=== PATIENT | male | born 1970 | race Two or more races ===

== ENCOUNTER 2017-02-25 12:27 | Emergency (ER) | payer OTHER ==
[2017-02-25 12:39] VITALS: BMI 28.8
--- NOTE | 2017-02-25 13:12 | C.PDOC ---
History Of Present Illness 47 year old male presents to the ED with complaints of worsening left knee pain with new onset of swelling for 1 week exacerbated by weight bearing. Patient states he may have "prior athletic injuries" and does a lot of climbing and walking for work. He denies history chronic knee pain, trauma, or instability. Patient also complaints of right foot pain because he is "not using left leg as much." He has been non-compliant with medications for two years and denies chest pain, headache, weakness, or numbness. Time Seen by Provider: 02/25/17 12:57 Chief Complaint (Nursing): Lower Extremity Problem/Injury History Per: Patient History/Exam Limitations: no limitations Onset/Duration Of Symptoms: Days (1 week ), Sudden Onset (of swelling to left knee and right food pain ) Current Symptoms Are (Timing): Still Present Recent travel outside of the [place]: No Past Medical History Reviewed: Historical Data, Nursing Documentation, Vital Signs Vital Signs: Last Vital Signs Temp 99.1 F 02/25/17 12:39 Pulse 114 H 02/25/17 12:39 Resp 88 H 02/25/17 13:50 BP 101/50 L 02/25/17 15:45 Pulse Ox 100 02/25/17 15:28 - Medical History PMH: HTN - [facility] Procedures CLOSURE SKIN & SUBCUTANEOUS NEC (02/15/13) DIPHTHERIA TOXOID ADMIN (02/15/13) TETANUS TOXOID ADMINIST (02/15/13) Family History: States: Unknown Family Hx - Social History Hx Alcohol Use: Yes Hx Substance Use: No - Immunization History Hx Tetanus Toxoid Vaccination: No Hx Influenza Vaccination: No Hx Pneumococcal Vaccination: No Review Of Systems Constitutional: Negative for: Fever, Chills Cardiovascular: Negative for: Chest Pain, Palpitations Respiratory: Negative for: Shortness of Breath Musculoskeletal: Positive for: Foot Pain (right foot pain ), Other (left knee pain and swelling.) Neurological: Negative for: Weakness, Numbness, Headache Physical Exam - Physical Exam Appears: Non-toxic, No Acute Distress Skin: Warm, Dry, Other (no erythema) Head: Atraumatic Eye(s): bilateral: Normal Inspection, PERRL, EOMI Oral Mucosa: Moist Neck: Supple Chest: Symmetrical, No Deformity Cardiovascular: Rhythm Regular Respiratory: Normal Breath Sounds, No Rhonchi, No Wheezing Extremity: No Normal ROM (limited full flexion due to pain and swelling in the left knee ), No Tenderness, No Calf Tenderness, Capillary Refill (good capillary refill, less than two seconds ), Swelling (moderate to severe swelling of the left knee) Neurological/Psych: Oriented x3, Normal Speech, Normal Cognition, Normal Cranial Nerves, Normal Motor, Normal Sensation Gait: Steady ED Course And Treatment O2 Sat by Pulse Oximetry: 100 (room air ) Progress - Re-Evaluation Re-evaluation Note: 02/25/17 14:43 SBP 88. CO NAUSEA, LIGHTHEADEDNESS. NO CP, BAIN. LAST MEAL YESTERDAY. WILL IVF, REASSESS 02/25/17 15:28 SBP 105. FEELS BETTER 02/25/17 16:57 BP STABILIZED. S/P PT CRUTCH TRAINING. PT AGREES W DC, REFERRAL CLINIC GIVEN. ADVISED TO TAKE ENALAPRIL ONLY FOR NOW, FU PMD FOR FURTHER HTN MGMT. - Data Reviewed Data Reviewed: Lab, Diagnostic imaging, Old records - Critical Care Citical Care: Excluding Proc Time Critical Care Time: 90 minutes - Continuity of Care Discussed patient case with:: Patient Medical Decision Making Medical Decision Making: Patient advised of the need to see orthopedist for possible MRI for evaluation. Patient also advised of the risk of stroke, heart attack, and kidney failure due to uncontrolled hypertension and patient understands. Disposition Counseled Patient/Family Regarding: Studies Performed, Diagnosis, Need For Followup, Rx Given - Disposition Referrals: [facility] [Outside] [facility] [Outside] Disposition: HOME/ ROUTINE Disposition Time: 17:00 Condition: IMPROVED Prescriptions: Acetaminophen/Codeine [Tylenol/Codeine 300 MG/30 MG] 2 tab PO Q6H #20 tab Clopidogrel [Plavix] 75 mg PO DAILY #30 tab Enalapril Maleate [Vasotec] 10 mg PO BID #60 tab Furosemide [Lasix] 40 mg PO DAILY #30 tab hydrALAZINE [Apresoline] 50 mg PO TID #90 tab Indomethacin [Indocin] 25 mg PO BID PRN #14 cap PRN Reason: Pain, Moderate (4-7) Isosorbide Mononitrate [Isosorbide Mononitrate ER] 30 mg PO DAILY #30 tab.er.24h Labetalol [Trandate] 200 mg PO BID #60 tab Instructions: Swollen Knee Joint (ED), Hypertension (ED) Forms: Work Excuse - Clinical Impression Clinical Impression: Knee pain, Joint swelling, Hypertension, uncontrolled - Scribe Statement The provider has reviewed the documentation as recorded by the Scribvero Chappell All medical record entries made by the Miladisibe were at my direction and personally dictated by me. I have reviewed the chart and agree that the record accurately reflects my personal performance of the history, physical exam, medical decision making, and the department course for this patient. I have also personally directed, reviewed, and agree with the discharge instructions and disposition.
[2017-02-25] MEDS ORDERED: Oxycodone/Acetaminophen 5/325 mg Tab PO STA (13:20)
[2017-02-25] MEDS ORDERED: Oxycodone/Acetaminophen 5/325 mg Tab ONE (13:36)
[2017-02-25 14:29] VITALS: RESP 88
[2017-02-25] MEDS ORDERED: Sodium Chloride 0.9% 1,000 ML IV ONE (14:44)
[2017-02-25 17:07] VITALS: BP 143/71; PULSE 89; TEMP 97.3; O2SAT 99
== END 2017-02-25 17:15 | disposition home or self-care (01) ==
LOC: C.ER 12:27
DX: M25.562 Pain in left knee (principal); M25.462 Effusion, left knee; I10 Essential (primary) hypertension
CPT/HCPCS: 96360; 96372; 97116; 97161; 99285; G8978; G8979; G8980; J1885; J7040

== ENCOUNTER 2017-02-27 09:04 | Observation (INO) | payer OTHER ==
[2017-02-27 09:04] VITALS: BMI 28.8
--- NOTE | 2017-02-27 09:39 | C.PDOC ---
History Of Present Illness Patient is a 47 y/o male presents to the ED for evaluation of new onset of lip swelling since last night. Patient states swelling is worse this morning. Patient was seen here on 02/25 for uncontrolled hypertension and knee pain and swelling. Patient states that he has not taken his blood pressure medication since the dose given here on 02/25. Pt was previously prescribed Vasotec. Otherwise, denies any shortness of breath, wheezing, nausea, vomiting, or dizziness. NEW ONSET LIP SWELLING SINCE LAST NIGHT NOW WORSE THIS MORNING. DENIES SOB, WHEEZE, NV, DIZZY. SEEN 02/25 FOR UNCONTROLL HTN AND KNEE PAIN/SWELLING. PS HAS NOT TAKING BP MEDS SINCE DOSE GIVEN ON 02/25. PT PREV PRESCRIBED VASOTEC EXAM MILD DIST NONTOXIC HEENT +ANGIOEDEMA SEVERE UPPER AND LOWER LIPS. TONGUE WNL. NO DROOL, STRIDOR LUNGS CTA B/L NO W/R/R SPEAKING FULL SENTENCES SKIN WARM DRY NO HIVES EXT NO EDEMA; L LEG SWELL, UNCH FROM PRIOR EXAM Time Seen by Provider: 02/27/17 09:29 Chief Complaint (Nursing): Allergic Reaction History Per: Patient History/Exam Limitations: no limitations Onset/Duration Of Symptoms: Days (1) Current Symptoms Are (Timing): Still Present Possible Cause: Unknown Associated Symptoms: Swelling (lip). denies: Skin Rash, Dyspnea, Trouble Swallowing, Dizziness, Itching, Redness, Chest Pain Home/EMS Treatment: None Severity: None Pain Scale Rating Of: 0 Recent travel outside of the [place]: No Additional History Per: Patient Past Medical History Reviewed: Historical Data, Nursing Documentation, Vital Signs Vital Signs: Last Vital Signs Temp 99 F 02/27/17 09:12 Pulse 84 02/27/17 10:58 Resp 14 02/27/17 10:58 BP 163/87 H 02/27/17 10:58 Pulse Ox 99 02/27/17 11:28 - Medical History PMH: Asthma, HTN - [facility] Procedures CLOSURE SKIN & SUBCUTANEOUS NEC (02/15/13) DIPHTHERIA TOXOID ADMIN (02/15/13) TETANUS TOXOID ADMINIST (02/15/13) Family History: States: Unknown Family Hx - Social History Hx Alcohol Use: Yes Hx Substance Use: No - Immunization History Hx Tetanus Toxoid Vaccination: No Hx Influenza Vaccination: No Hx Pneumococcal Vaccination: No Review Of Systems Except As Marked, All Systems Reviewed And Found Negative. Constitutional: Negative for: Fever, Chills ENT: Positive for: Other (lip swelling). Negative for: Mouth Pain Cardiovascular: Negative for: Chest Pain, Palpitations, Light Headedness Respiratory: Negative for: Cough, Shortness of Breath, Sputum, Wheezing Gastrointestinal: Negative for: Nausea, Vomiting Neurological: Negative for: Headache, Dizziness Physical Exam - Physical Exam Appears: Non-toxic, Other (In mild distress) Skin: Normal Color, Warm, Dry, No Rash (no hives) Head: Atraumatic, Normacephalic Eye(s): bilateral: Normal Inspection, PERRL, EOMI Ear(s): Bilateral: Normal Nose: Normal Oral Mucosa: Moist, No Drooling Tongue: Normal Appearing, No Swelling, No Lesions Lips: Swelling (severe angioedema to upper and lower lips) Teeth: Normal Dentition Gingiva: Normal Appearing Throat: Normal, No Erythema, No Drooling Neck: Normal ROM, Supple Chest: Symmetrical Cardiovascular: Rhythm Regular, No Murmur Respiratory: Normal Breath Sounds, No Rales, No Rhonchi, No Wheezing, Other ( Speaking in full sentences) Extremity: Normal ROM, No Tenderness, No Pedal Edema, Capillary Refill (< 2 sec. ), No Deformity, Swelling (left leg swelling, unchanged from prior exam) Extremity: Bilateral: Atraumatic Pulses: Left Dorsalis Pedis: Normal, Right Dorsalis Pedis: Normal Neurological/Psych: Oriented x3, Normal Speech, Normal Cognition ED Course And Treatment O2 Sat by Pulse Oximetry: 99 (on RA) Pulse Ox Interpretation: Normal Progress Note: Patient was given Benadryl, Pepcid, Solu-Medrol, Toradol, and Trandate. Progress - Data Reviewed Data Reviewed: Lab, Diagnostic imaging, EKG, Old records - Critical Care Citical Care: Excluding Proc Time Critical Care Time: 120 minutes - Continuity of Care Discussed patient case with:: Patient, Family-HIPPA compliant ED OBSERVATION Discharge: Yes Date of observation admission: 02/27/17 Time of observation admission: 09:15 - Observation admission statement Patient is being placed in observation because:: ANGIOEDEMA - Goals of Observation Goals of observation are:: SX IMPROVE, VSS - Progress Note Progress Note: 02/27/17 11:15 BP IMPROVED. NARD PERSIST ANGIOEDEMA 02/27/17 11:57 ANGIOEDEMA IMPROVED FROM INITIAL. VSS. ADVISED ABOUT [facility] LIST. WILL TAKE PREDNISONE, HYDRALAZINE UNTIL FU CLINIC Disposition Counseled Patient/Family Regarding: Diagnosis, Need For Followup, Rx Given - Disposition Disposition: HOME/ ROUTINE Disposition Time: 11:58 Condition: IMPROVED - Clinical Impression Clinical Impression: Knee pain, Angioedema, Medication reaction, Hypertension, uncontrolled - Scribe Statement The provider has reviewed the documentation as recorded by the Geeta Hubbard All medical record entries made by the Geeta were at my direction and personally dictated by me. I have reviewed the chart and agree that the record accurately reflects my personal performance of the history, physical exam, medical decision making, and the department course for this patient. I have also personally directed, reviewed, and agree with the discharge instructions and disposition.
[2017-02-27] MEDS ORDERED: Labetalol 25mg/5ml Syringe IVP STA (09:40)
[2017-02-27] MEDS ORDERED: DiphenhydrAMINE 50 mg/ml Inj IVP STA (09:40)
[2017-02-27] MEDS ORDERED: MethylPREDNISolone 40 mg Vial IVP STA (09:40)
[2017-02-27] MEDS ORDERED: MethylPREDNISolone 40 mg Vial ONE (09:54)
[2017-02-27] MEDS ORDERED: DiphenhydrAMINE 50 mg/ml Inj ONE (09:54)
[2017-02-27 10:59] VITALS: RESP 14
[2017-02-27 12:07] VITALS: BP 162/99; PULSE 87; TEMP 98.6; O2SAT 100
== END 2017-02-27 11:59 | disposition home or self-care (01) ==
LOC: C.ER 09:04 → C.9OBSV 09:15
PROVIDERS: ADMIT Emergency Medicine; ATTEND Emergency Medicine
DX: T78.3XXA Angioneurotic edema, initial encounter (principal); J45.909 Unspecified asthma, uncomplicated; I10 Essential (primary) hypertension
CPT/HCPCS: 96374; 96375; 99285; G0378; J1200; J1885; J2920